=== PATIENT | male | born 1950 | race Two or more races ===

== ENCOUNTER 2018-12-02 11:01 | Outpatient (CLI) | payer OTHER, MEDICARE | END 2018-12-02 11:02 | disposition home or self-care (01) | LOC: C.RADH 11:01 ==

== ENCOUNTER 2018-12-03 08:51 | Outpatient (CLI) | payer OTHER, MEDICARE | END 2018-12-03 08:52 | disposition home or self-care (01) | LOC: C.VASC 08:51 | DX: M79.605 Pain in left leg (principal); M79.604 Pain in right leg ==